=== PATIENT | female | born 1955 | race Caucasian/White ===

== ENCOUNTER 2017-11-03 17:02 | Inpatient (IN) | payer MEDICAID ==
[~2017-11-03] VITALS: Ht 162.6 cm; Wt 87.7 kg
[~2017-11-03 17:02] MED LIST: TRAM50TA2 PO
[2017-11-03] MEDS ORDERED: normal saline 1000ML IV soln IV ONE (17:30)
[2017-11-03] MEDS ORDERED: ipratropium/albuterol 3ml nebule NEB ONE (17:30)
[2017-11-03] MEDS ORDERED: acetaminophen 325mg tablet PO STA (17:30)
[2017-11-03] MEDS ORDERED: methylPREDNISolone sod succ 125mg/2ml vial IV ONE (17:30)
[2017-11-03 17:43] LABS: BASOPHILS % (AUTO) 0.1 % (0-1); EOSINOPHILS # (AUTO) 0.1 X10'3 (0-0.9); EOSINOPHILS % (AUTO) 0.5 % (0-6); HEMATOCRIT 44.2 % (35.0-45.0); HEMOGLOBIN 15.1 g/dl (12.0-16.0); LYMPHOCYTES # (AUTO) 1.3 X10'3 (1.1-4.8); LYMPHOCYTES % (AUTO) 6.7 % (21-51); MEAN CORPUSCULAR HEMOGLOBIN 29.9 PG (27.0-31.0); MEAN CORPUSCULAR HGB CONC 34.3 % (33.0-36.5); MEAN CORPUSCULAR VOLUME 87.4 FL (78-98); MEAN PLATELET VOLUME 10.3 FL (7.4-10.4); MONOCYTES # (AUTO) 0.5 X10'3 (0-0.9); MONOCYTES % (AUTO) 2.6 % (2-12); NEUTROPHILS # (AUTO) 17.4 X10'3 (1.8-7.7); NEUTROPHILS % (AUTO) 90.1 % (42-75); PLATELET COUNT 201 X10'3 (140-440); RED BLOOD COUNT 5.06 X10'6 (4.20-5.60); RED CELL DISTRIBUTION WIDTH 12.1 % (11.5-14.5); WHITE BLOOD COUNT 19.3 X10'3 (4.5-11.0)
[2017-11-03] MEDS ORDERED: GLYB5TAB7 PO (17:57)
[2017-11-03] MEDS ORDERED: ASPI-83 (17:57)
[2017-11-03] MEDS ORDERED: METF500T PO (17:58)
[2017-11-03] MEDS ORDERED: LISI-600 PO (17:59)
[2017-11-03 18:03] LABS: ALANINE AMINOTRANSFERASE 39 U/L (12-78); ALBUMIN 2.8 G/DL (3.4-5.0); ALBUMIN/GLOBULIN RATIO 0.5 (1.1-1.5); ALKALINE PHOSPHATASE 102 IU/L (46-116); ANION GAP 14 (8-16); ASPARTATE AMINO TRANSFERASE 21 U/L (10-37); BILIRUBIN,TOTAL 1.9 MG/DL (0.1-1.0); BLOOD UREA NITROGEN 17 MG/DL (7-18); CALCIUM 8.4 MG/DL (8.5-10.1); CHLORIDE 94 MMOL/L (99-107); CREATININE 1.21 MG/DL (0.40-0.90); GLUCOSE 313 MG/DL (70-104); POTASSIUM 4.1 MMOL/L (3.5-5.1); SODIUM 132 MMOL/L (135-145); TOTAL CARBON DIOXIDE 24.3 MMOL/L (24-32); TOTAL PROTEIN 8.4 G/DL (6.4-8.2); eGFR 45 ML/MIN
[2017-11-03 18:16] LABS: TOTAL CELLS COUNTED 100
[2017-11-03 18:17] LABS: PLATELET ESTIMATE NORMAL; ROULEAUX 1+
[2017-11-03] MEDS ORDERED: CefTRIAXone 2gm/D5W 50ml ADVTG 50 ML IV ONE (18:50)
[2017-11-03] MEDS ORDERED: azithromycin/NS 500mg/250ml 250 ML IV ONE (18:50)
[2017-11-03] MEDS: normal saline 1000ml 1,000 ML IV SCH (20:09)
[2017-11-03] MEDS ORDERED: acetaminophen 325mg tablet PO PRN ×2 (20:10)
[2017-11-03] MEDS ORDERED: magnesium hydroxide 30ml (MOM) UD suspension PO PRN (20:10)
[2017-11-03] MEDS ORDERED: ondansetron/PF 4mg/2ml inj IV PRN (20:10)
[2017-11-03] MEDS ORDERED: mag hydrox/Alum hydrox/simeth 30ml oral suspension PO PRN (20:10)
[2017-11-03] MEDS ORDERED: MESSAGE TO PHARMACY PO ONE (20:15)
[2017-11-03] MEDS ORDERED: dextrose 50%-water 50ml dispensing syringe IV PRN ×2 (20:15)
[2017-11-03] MEDS ORDERED: dextrose ORAL solution 15 GM/59 ML bottle PO PRN ×2 (20:15)
[2017-11-03] MEDS ORDERED: glucagon, human recombinant 1mg kit SUBCUT PRN (20:15)
[2017-11-03] MEDS ORDERED: Insulin Detemir pen SQ SCH (21:00)
[2017-11-03 22:05] VITALS: BP 152/86
[2017-11-03 23:30] VITALS: BP 140/75
[2017-11-04] MEDS: methylPREDNISolone sod succ 125mg/2ml vial IV SCH ×4 (02:07→20:54)
[2017-11-04] MEDS: normal saline 1000ml 1,000 ML IV SCH ×2 (02:07→14:25)
[2017-11-04 05:19] LABS: BASOPHILS % (AUTO) 0.1 % (0-1); EOSINOPHILS # (AUTO) 0.1 X10'3 (0-0.9); EOSINOPHILS % (AUTO) 0.8 % (0-6); HEMATOCRIT 37.8 % (35.0-45.0); HEMOGLOBIN 13.1 g/dl (12.0-16.0); LYMPHOCYTES # (AUTO) 1.1 X10'3 (1.1-4.8); LYMPHOCYTES % (AUTO) 8.1 % (21-51); MEAN CORPUSCULAR HEMOGLOBIN 30.1 PG (27.0-31.0); MEAN CORPUSCULAR HGB CONC 34.6 % (33.0-36.5); MEAN CORPUSCULAR VOLUME 87.2 FL (78-98); MEAN PLATELET VOLUME 10.5 FL (7.4-10.4); MONOCYTES # (AUTO) 0.3 X10'3 (0-0.9); MONOCYTES % (AUTO) 2.3 % (2-12); NEUTROPHILS # (AUTO) 12.4 X10'3 (1.8-7.7); NEUTROPHILS % (AUTO) 88.7 % (42-75); PLATELET COUNT 177 X10'3 (140-440); RED BLOOD COUNT 4.34 X10'6 (4.20-5.60)
[2017-11-04] MEDS: ipratropium/albuterol 3ml nebule NEB PRN ×3 (05:20→15:56)
[2017-11-04 05:41] LABS: ALBUMIN 2.1 G/DL (3.4-5.0); ANION GAP 9 (8-16); BLOOD UREA NITROGEN 15 MG/DL (7-18); BUN/CREATININE RATIO 17.4 (6.6-38.0); CALCIUM 7.9 MG/DL (8.5-10.1); CHLORIDE 106 MMOL/L (99-107); CREATININE 0.86 MG/DL (0.40-0.90); GLUCOSE 324 MG/DL (70-104); POTASSIUM 4.1 MMOL/L (3.5-5.1); SODIUM 139 MMOL/L (135-145); TOTAL CARBON DIOXIDE 24.4 MMOL/L (24-32); eGFR 67 ML/MIN
[2017-11-04] MEDS ORDERED: vancomycin/NS 1 GM ADD-VANTAGE 250 ML IV ONE (05:50)
[2017-11-04 07:23] VITALS: BP 129/82
[2017-11-04] MEDS: aspirin 325mg tablet PO SCH (07:47)
[2017-11-04] MEDS: lisinopril 20mg tablet PO SCH (07:47)
[2017-11-04] MEDS ORDERED: azithromycin/NS 500mg/250ml 250 ML IV SCH (08:00)
[2017-11-04] MEDS ORDERED: CefTRIAXone 2gm/D5W 50ml ADVTG 50 ML IV SCH (08:00)
[2017-11-04] MEDS: enoxaparin 40mg/0.4ml syringe SQ SCH (08:37)
[2017-11-04] MEDS: insulin Lispro (HumaLOG) vial - multi-dose SQ SCH ×3 (08:41→19:11)
[2017-11-04] MEDS ORDERED: azithromycin 250mg tablet PO SCH (09:28)
[2017-11-04 09:59] LABS: ALBUMIN 2.1 G/DL (3.4-5.0); ANION GAP 9 (8-16); BLOOD UREA NITROGEN 18 MG/DL (7-18); CALCIUM 7.9 MG/DL (8.5-10.1); CHLORIDE 105 MMOL/L (99-107); GLUCOSE 411 MG/DL (70-104); SODIUM 139 MMOL/L (135-145); TOTAL CARBON DIOXIDE 25.3 MMOL/L (24-32); eGFR 64 ML/MIN
[2017-11-04 11:20] VITALS: BP 143/69
[2017-11-04] MEDS ORDERED: insulin Lispro (HumaLOG) vial - multi-dose SQ ONE ×2 (14:45→16:40)
[2017-11-04] MEDS ORDERED: guaiFENesin/DM oral syrup 5 ML CUP PO PRN (16:50)
[2017-11-04] MEDS: ipratropium/albuterol 3ml nebule NEB SCH ×3 (16:50→23:42)
[2017-11-04] MEDS: levoFLOXACIN-Levaquin 750MG/D5 150 ML IV SCH (17:29)
[2017-11-04 20:00] VITALS: BP 151/84
[2017-11-04] MEDS: Insulin Detemir pen SQ SCH (21:01)
[2017-11-05] VITALS: BP 150/80
[2017-11-05] MEDS: methylPREDNISolone sod succ 125mg/2ml vial IV SCH ×3 (02:51→14:39)
[2017-11-05] MEDS: normal saline 1000ml 1,000 ML IV SCH ×2 (02:53→13:22)
[2017-11-05] MEDS: ipratropium/albuterol 3ml nebule NEB SCH ×6 (03:56→23:19)
[2017-11-05 05:45] LABS: BASOPHILS % (AUTO) 0 % (0-1); EOSINOPHILS % (AUTO) 0 % (0-6); HEMATOCRIT 36.9 % (35.0-45.0); HEMOGLOBIN 12.7 g/dl (12.0-16.0); LYMPHOCYTES # (AUTO) 0.9 X10'3 (1.1-4.8); LYMPHOCYTES % (AUTO) 6.2 % (21-51); MEAN CORPUSCULAR HEMOGLOBIN 30.2 PG (27.0-31.0); MEAN CORPUSCULAR HGB CONC 34.4 % (33.0-36.5); MEAN CORPUSCULAR VOLUME 87.7 FL (78-98); MEAN PLATELET VOLUME 10.5 FL (7.4-10.4); MONOCYTES # (AUTO) 0.4 X10'3 (0-0.9); MONOCYTES % (AUTO) 2.9 % (2-12); NEUTROPHILS # (AUTO) 12.8 X10'3 (1.8-7.7); NEUTROPHILS % (AUTO) 90.9 % (42-75); PLATELET COUNT 193 X10'3 (140-440); RED BLOOD COUNT 4.21 X10'6 (4.20-5.60); RED CELL DISTRIBUTION WIDTH 12.2 % (11.5-14.5); WHITE BLOOD COUNT 14.1 X10'3 (4.5-11.0)
[2017-11-05 05:59] LABS: ANION GAP 10 (8-16); BLOOD UREA NITROGEN 29 MG/DL (7-18); BUN/CREATININE RATIO 30.9 (6.6-38.0); CALCIUM 8.3 MG/DL (8.5-10.1); CHLORIDE 106 MMOL/L (99-107); CREATININE 0.94 MG/DL (0.40-0.90); GLUCOSE 328 MG/DL (70-104); POTASSIUM 3.8 MMOL/L (3.5-5.1); SODIUM 137 MMOL/L (135-145); TOTAL CARBON DIOXIDE 21.3 MMOL/L (24-32); eGFR 61 ML/MIN
[2017-11-05 07:00] LABS: LARGE PLATELETS FEW; PLATELET ESTIMATE NORMAL
[2017-11-05] MEDS: levoFLOXACIN-Levaquin 750MG/D5 150 ML IV SCH (07:03)
[2017-11-05] MEDS: pantoprazole 40mg Tablet.DR PO SCH (07:04)
[2017-11-05] MEDS: aspirin 325mg tablet PO SCH (07:04)
[2017-11-05] MEDS: lisinopril 20mg tablet PO SCH (07:04)
[2017-11-05] MEDS: enoxaparin 40mg/0.4ml syringe SQ SCH (07:09)
[2017-11-05 07:15] VITALS: BP 166/89
[2017-11-05] MEDS: insulin Lispro (HumaLOG) vial - multi-dose SQ SCH ×4 (08:29→22:14)
[2017-11-05] MEDS ORDERED: insulin glargine (Lantus) pen - multi-dose SQ ONE (10:05)
[2017-11-05] MEDS ORDERED: insulin Lispro (HumaLOG) vial - multi-dose SQ ONE (10:05)
[2017-11-05] MEDS: Insulin Detemir pen SQ SCH (10:08)
[2017-11-05 11:32] VITALS: BP 168/88
[2017-11-05 18:00] VITALS: BP 157/85
[2017-11-05] MEDS: Potassium Cl inj 10 MEQ in normal saline 1000ml 1,000 ML IV SCH (20:46)
[2017-11-06] VITALS: BP 166/95
[2017-11-06] MEDS: methylPREDNISolone sod succ 125mg/2ml vial IV SCH ×3 (00:11→15:18)
[2017-11-06] MEDS: ipratropium/albuterol 3ml nebule NEB SCH ×6 (03:21→23:25)
[2017-11-06 05:03] LABS: BASOPHILS % (AUTO) 0.1 % (0-1); EOSINOPHILS % (AUTO) 0 % (0-6); HEMATOCRIT 35.8 % (35.0-45.0); HEMOGLOBIN 12.2 g/dl (12.0-16.0); LYMPHOCYTES # (AUTO) 0.9 X10'3 (1.1-4.8); LYMPHOCYTES % (AUTO) 6.7 % (21-51); MEAN CORPUSCULAR HEMOGLOBIN 30.2 PG (27.0-31.0); MEAN CORPUSCULAR HGB CONC 34.2 % (33.0-36.5); MEAN CORPUSCULAR VOLUME 88.2 FL (78-98); MEAN PLATELET VOLUME 10.5 FL (7.4-10.4); MONOCYTES # (AUTO) 0.5 X10'3 (0-0.9); MONOCYTES % (AUTO) 4.2 % (2-12); NEUTROPHILS # (AUTO) 11.4 X10'3 (1.8-7.7); PLATELET COUNT 211 X10'3 (140-440); RED BLOOD COUNT 4.06 X10'6 (4.20-5.60); RED CELL DISTRIBUTION WIDTH 12.3 % (11.5-14.5); WHITE BLOOD COUNT 12.8 X10'3 (4.5-11.0)
[2017-11-06 05:23] LABS: ANION GAP 7 (8-16); BLOOD UREA NITROGEN 30 MG/DL (7-18); BUN/CREATININE RATIO 36.6 (6.6-38.0); CALCIUM 8.3 MG/DL (8.5-10.1); CHLORIDE 109 MMOL/L (99-107); CREATININE 0.82 MG/DL (0.40-0.90); GLUCOSE 317 MG/DL (70-104); SODIUM 137 MMOL/L (135-145); TOTAL CARBON DIOXIDE 20.7 MMOL/L (24-32); eGFR 71 ML/MIN
[2017-11-06 08:00] VITALS: BP 155/92
[2017-11-06] MEDS: pantoprazole 40mg Tablet.DR PO SCH (08:10)
[2017-11-06] MEDS: levoFLOXACIN-Levaquin 750MG/D5 150 ML IV SCH (08:10)
[2017-11-06] MEDS: lisinopril 20mg tablet PO SCH ×2 (08:10→21:15)
[2017-11-06] MEDS: enoxaparin 40mg/0.4ml syringe SQ SCH (08:11)
[2017-11-06] MEDS: aspirin 325mg tablet PO SCH (08:11)
[2017-11-06] MEDS: insulin Lispro (HumaLOG) vial - multi-dose SQ SCH ×3 (09:19→18:52)
[2017-11-06] MEDS: Potassium Cl inj 10 MEQ in normal saline 1000ml 1,000 ML IV SCH (09:34)
[2017-11-06 11:00] VITALS: BP 185/99
[2017-11-06] MEDS ORDERED: hydrALAZINE 20mg/ml inj. IV ONE (12:00)
[2017-11-06 20:00] VITALS: BP 153/72
[2017-11-06] MEDS: methylPREDNISolone sod succ/PF 40mg inj. IV SCH (21:15)
[2017-11-06] MEDS: Insulin Detemir pen SQ SCH (21:18)
[2017-11-07] VITALS: BP 176/90
[2017-11-07] MEDS: methylPREDNISolone sod succ/PF 40mg inj. IV SCH ×3 (02:12→13:55)
[2017-11-07] MEDS: ipratropium/albuterol 3ml nebule NEB SCH ×4 (03:09→14:37)
[2017-11-07 03:44] VITALS: BP 161/87
[2017-11-07 05:43] LABS: ALBUMIN 2.1 G/DL (3.4-5.0); ANION GAP 8 (8-16); BLOOD UREA NITROGEN 29 MG/DL (7-18); CALCIUM 8.2 MG/DL (8.5-10.1); CHLORIDE 107 MMOL/L (99-107); CREATININE 0.88 MG/DL (0.40-0.90); GLUCOSE 316 MG/DL (70-104); POTASSIUM 3.8 MMOL/L (3.5-5.1); SODIUM 137 MMOL/L (135-145); TOTAL CARBON DIOXIDE 22.5 MMOL/L (24-32); eGFR 66 ML/MIN
[2017-11-07] MEDS: enoxaparin 40mg/0.4ml syringe SQ SCH (07:14)
[2017-11-07] MEDS: pantoprazole 40mg Tablet.DR PO SCH (07:15)
[2017-11-07] MEDS: aspirin 325mg tablet PO SCH (07:15)
[2017-11-07] MEDS: lisinopril 20mg tablet PO SCH (07:15)
[2017-11-07] MEDS: levoFLOXACIN-Levaquin 750MG/D5 150 ML IV SCH (07:15)
[2017-11-07] MEDS ORDERED: LACTOBACILLUS RHAMNOSUS GG 15 billion unit sprinkle caps PO SCH (07:30)
[2017-11-07 08:00] VITALS: BP 163/79
[2017-11-07] MEDS: insulin Lispro (HumaLOG) vial - multi-dose SQ SCH ×2 (09:01→13:06)
[2017-11-07] MEDS ORDERED: INSU100V11 SQ (10:32)
[2017-11-07] MEDS ORDERED: LEVO750T21 PO (10:32)
[2017-11-07] MEDS ORDERED: PRED10TA23 PO (10:34)
[2017-11-07] MEDS ORDERED: OMEP20TA23 PO (10:34)
[2017-11-07] MEDS ORDERED: ALBU6.7H INH (10:34)
[2017-11-07] MEDS ORDERED: LANTUS SQ (10:44)
[2017-11-07] MEDS ORDERED: lisinopril 10 MG tablet PO ONE (11:10)
[2017-11-07 12:00] VITALS: BP 186/106
[2017-11-07] MEDS ORDERED: hydrALAZINE 20mg/ml inj. IV ONE (13:45)
== END 2017-11-07 15:45 | disposition home or self-care (01) | DRG 720 ==
LOC: ER 17:03 → ED HOLD 20:09 → SUR 3N 22:14
PROVIDERS: ADMIT Internal Medicine; ATTEND Internal Medicine
DX: A40.3 Sepsis due to Streptococcus pneumoniae (principal); J96.90 Respiratory failure, unspecified, unspecified whether with hypoxia or hypercapnia; N17.9 Acute kidney failure, unspecified; J18.1 Lobar pneumonia, unspecified organism; E86.0 Dehydration; J44.0 Chronic obstructive pulmonary disease with (acute) lower respiratory infection; E87.1 Hypo-osmolality and hyponatremia; I10 Essential (primary) hypertension; F17.210 Nicotine dependence, cigarettes, uncomplicated; N28.9 Disorder of kidney and ureter, unspecified; E11.65 Type 2 diabetes mellitus with hyperglycemia; J44.1 Chronic obstructive pulmonary disease with (acute) exacerbation; R07.89 Other chest pain; Z98.891 History of uterine scar from previous surgery; Z79.899 Other long term (current) drug therapy; Z79.01 Long term (current) use of anticoagulants; Z79.82 Long term (current) use of aspirin; Z79.4 Long term (current) use of insulin; Z79.84 Long term (current) use of oral hypoglycemic drugs
CPT/HCPCS: 36415; 71046; 80048; 80053; 82948; 83036; 83605; 85025; 87040; 87070; 87077; 87186; 87502; 87503; 93005; 94640; 94760; 96365; 96375; 99285; J0360; J0456; J0696; J1650; J1956; J2920; J2930; J3370; J3480; J7030

== ENCOUNTER 2018-03-11 18:27 | Inpatient (IN) | payer MEDICAID ==
[~2018-03-11] VITALS: Ht 162.6 cm; Wt 88.5 kg
[~2018-03-11 18:27] MED LIST changes: +ALBU6.7H INH; +ASPI-83; +INSU100V11 SQ; +LISI-600 PO; +METF500T PO; +OMEP20TA23 PO; -TRAM50TA2 PO
[2018-03-11] MEDS ORDERED: aspirin 81mg tab.chew PO ONE (18:40)
[2018-03-11 18:56] LABS: BASOPHILS # (AUTO) 0.1 X10'3 (0-0.2); BASOPHILS % (AUTO) 0.7 % (0-1); EOSINOPHILS # (AUTO) 0.2 X10'3 (0-0.9); EOSINOPHILS % (AUTO) 2.3 % (0-6); HEMATOCRIT 42.4 % (35.0-45.0); HEMOGLOBIN 14.8 g/dl (12.0-16.0); LYMPHOCYTES # (AUTO) 2.2 X10'3 (1.1-4.8); MEAN CORPUSCULAR HEMOGLOBIN 30.8 PG (27.0-31.0); MEAN CORPUSCULAR HGB CONC 34.9 % (33.0-36.5); MEAN CORPUSCULAR VOLUME 88.2 FL (78-98); MEAN PLATELET VOLUME 9.9 FL (7.4-10.4); MONOCYTES # (AUTO) 0.4 X10'3 (0-0.9); NEUTROPHILS # (AUTO) 4.7 X10'3 (1.8-7.7); PLATELET COUNT 207 X10'3 (140-440); RED BLOOD COUNT 4.81 X10'6 (4.20-5.60); RED CELL DISTRIBUTION WIDTH 11.9 % (11.5-14.5); WHITE BLOOD COUNT 7.4 X10'3 (4.5-11.0)
[2018-03-11 19:07] LABS: INR 0.9 INR; PARTIAL THROMBOPLASTIN TIME 25 SECONDS (22-32); PROTHROMBIN TIME 9.8 SECONDS (9.0-12.0)
[2018-03-11 19:10] LABS: ALANINE AMINOTRANSFERASE 58 U/L (12-78); ALBUMIN 3.5 G/DL (3.4-5.0); ALBUMIN/GLOBULIN RATIO 0.9 (1.1-1.5); ALKALINE PHOSPHATASE 109 IU/L (46-116); ANION GAP 9 (8-16); ASPARTATE AMINO TRANSFERASE 30 U/L (10-37); BILIRUBIN,TOTAL 0.6 MG/DL (0.1-1.0); BLOOD UREA NITROGEN 17 MG/DL (7-18); BUN/CREATININE RATIO 19.1 (6.6-38.0); CALCIUM 9.2 MG/DL (8.5-10.1); CHLORIDE 105 MMOL/L (99-107); CREATININE 0.89 MG/DL (0.40-0.90); GLUCOSE 191 MG/DL (70-104); POTASSIUM 4.2 MMOL/L (3.5-5.1); SODIUM 141 MMOL/L (135-145); TOTAL CARBON DIOXIDE 27.1 MMOL/L (24-32); TOTAL PROTEIN 7.4 G/DL (6.4-8.2); eGFR 65 ML/MIN
[2018-03-11] MEDS ORDERED: nitroGLYCERIN 0.4mg SUBLingual tab SL PRN (19:25)
[2018-03-11] MEDS ORDERED: heparin 10,000 units/1 ML INJ IV ONE (19:25)
[2018-03-11] MEDS ORDERED: heparin 10,000 units/1 ML INJ IV PRN ×2 (19:25→22:20)
[2018-03-11] MEDS ORDERED: INSU100I31 SUBCUT (20:29)
[2018-03-11] MEDS ORDERED: sodium chloride 0.45% 1,000 ML IV SCH (22:08)
[2018-03-11] MEDS ORDERED: mag hydrox/Alum hydrox/simeth 30ml oral suspension PO PRN (22:10)
[2018-03-11] MEDS ORDERED: ondansetron/PF 4mg/2ml inj IV PRN (22:10)
[2018-03-11] MEDS ORDERED: magnesium hydroxide 30ml (MOM) UD suspension PO PRN (22:10)
[2018-03-11] MEDS ORDERED: morphine 4 MG/ML inj SYRINge IV PRN (22:10)
[2018-03-11] MEDS ORDERED: acetaminophen 325mg tablet PO PRN (22:10)
[2018-03-11 22:32] LABS: HEMOGLOBIN A1C 8.3 % (4.5-6.2)
[2018-03-11 22:50] LABS: BASOPHILS % (AUTO) 0.5 % (0-1); EOSINOPHILS # (AUTO) 0.3 X10'3 (0-0.9); EOSINOPHILS % (AUTO) 2.9 % (0-6); HEMATOCRIT 41.5 % (35.0-45.0); HEMOGLOBIN 14.5 g/dl (12.0-16.0); LYMPHOCYTES % (AUTO) 32.7 % (21-51); MEAN CORPUSCULAR HEMOGLOBIN 31.2 PG (27.0-31.0); MEAN CORPUSCULAR HGB CONC 34.9 % (33.0-36.5); MEAN CORPUSCULAR VOLUME 89.2 FL (78-98); MEAN PLATELET VOLUME 9.4 FL (7.4-10.4); MONOCYTES # (AUTO) 0.5 X10'3 (0-0.9); NEUTROPHILS # (AUTO) 5.4 X10'3 (1.8-7.7); NEUTROPHILS % (AUTO) 58.9 % (42-75); PLATELET COUNT 266 X10'3 (140-440); RED BLOOD COUNT 4.65 X10'6 (4.20-5.60); RED CELL DISTRIBUTION WIDTH 12.5 % (11.5-14.5); WHITE BLOOD COUNT 9.1 X10'3 (4.5-11.0)
[2018-03-11 22:59] LABS: PROTHROMBIN TIME 10.3 SECONDS (9.0-12.0)
[2018-03-11 23:00] VITALS: BP 161/70
[2018-03-11] MEDS: metoprolol tartrate 12.5mg (1/2 tablet) PO SCH (23:33)
[2018-03-11 23:36] LABS: PARTIAL THROMBOPLASTIN TIME 84 SECONDS (22-32)
[2018-03-12] VITALS (13 sets, daily range): BP systolic 122–155; BP diastolic 51–94
[2018-03-12] MEDS: lisinopril 2.5mg tablet PO SCH ×2 (00:58→07:57)
[2018-03-12] MEDS ORDERED: dextrose ORAL solution 15 GM/59 ML bottle PO PRN ×2 (01:35)
[2018-03-12] MEDS ORDERED: MESSAGE TO PHARMACY PO ONE (01:35)
[2018-03-12] MEDS ORDERED: glucagon, human recombinant 1mg kit SUBCUT PRN (01:35)
[2018-03-12] MEDS ORDERED: dextrose 50%-water 50ml dispensing syringe IV PRN ×2 (01:35)
[2018-03-12 07:08] LABS: BASOPHILS % (AUTO) 0.5 % (0-1); EOSINOPHILS # (AUTO) 0.3 X10'3 (0-0.9); HEMATOCRIT 41.8 % (35.0-45.0); HEMOGLOBIN 14.3 g/dl (12.0-16.0); LYMPHOCYTES # (AUTO) 2.3 X10'3 (1.1-4.8); LYMPHOCYTES % (AUTO) 36.4 % (21-51); MEAN CORPUSCULAR HEMOGLOBIN 30.8 PG (27.0-31.0); MEAN CORPUSCULAR HGB CONC 34.3 % (33.0-36.5); MEAN CORPUSCULAR VOLUME 89.8 FL (78-98); MEAN PLATELET VOLUME 10.1 FL (7.4-10.4); MONOCYTES # (AUTO) 0.4 X10'3 (0-0.9); MONOCYTES % (AUTO) 5.7 % (2-12); NEUTROPHILS # (AUTO) 3.4 X10'3 (1.8-7.7); NEUTROPHILS % (AUTO) 53.4 % (42-75); PLATELET COUNT 165 X10'3 (140-440); RED BLOOD COUNT 4.65 X10'6 (4.20-5.60); RED CELL DISTRIBUTION WIDTH 12.3 % (11.5-14.5); WHITE BLOOD COUNT 6.4 X10'3 (4.5-11.0)
[2018-03-12 07:24] LABS: ALANINE AMINOTRANSFERASE 55 U/L (12-78); ALBUMIN 3.2 G/DL (3.4-5.0); ALBUMIN/GLOBULIN RATIO 0.9 (1.1-1.5); ALKALINE PHOSPHATASE 84 IU/L (46-116); ANION GAP 6 (8-16); ASPARTATE AMINO TRANSFERASE 37 U/L (10-37); BILIRUBIN,TOTAL 0.9 MG/DL (0.1-1.0); BLOOD UREA NITROGEN 15 MG/DL (7-18); CALCIUM 8.7 MG/DL (8.5-10.1); CHLORIDE 105 MMOL/L (99-107); CREATININE 0.75 MG/DL (0.40-0.90); GLUCOSE 165 MG/DL (70-104); POTASSIUM 4.2 MMOL/L (3.5-5.1); SODIUM 138 MMOL/L (135-145); TOTAL CARBON DIOXIDE 27.2 MMOL/L (24-32); TOTAL PROTEIN 6.8 G/DL (6.4-8.2); eGFR 79 ML/MIN
[2018-03-12 07:28] LABS: MAGNESIUM 1.6 MG/DL (1.5-2.4); PHOSPHORUS 4.1 MG/DL (2.3-4.5)
[2018-03-12] MEDS: metoprolol tartrate 12.5mg (1/2 tablet) PO SCH ×2 (07:57→20:54)
[2018-03-12] MEDS: aspirin 81mg tablet.DR PO SCH (07:57)
[2018-03-12] MEDS ORDERED: nitroGLYCERIN 0.4mg SUBLingual tab SL PRN (09:05)
[2018-03-12] MEDS ORDERED: CAFFEINE CITRATE 60 MG/3 ML injection vial IV PRN (09:05)
[2018-03-12] MEDS ORDERED: regadenoson 0.4mg/5ml syringe IV ONE ×2 (09:05→11:24)
[2018-03-12] MEDS ORDERED: metoprolol tartrate 1mg/ml inj IV PRN (09:05)
[2018-03-12] MEDS ORDERED: CAFFEINE CITRATE 60 MG/3 ML injection vial IV ONE (11:24)
[2018-03-12 11:37] LABS: CHOL/HDL RATIO 2.9 (0.00-4.99); CHOLESTEROL 195 MG/DL (0-200); HDL CHOLESTEROL 68 MG/DL (35-60); LDL CHOLESTEROL 115 MG/DL (50-100); TRIGLYCERIDES 76 MG/DL (20-135)
[2018-03-12] MEDS ORDERED: insulin glargine (Lantus) pen - multi-dose SQ SCH (21:00)
[2018-03-12] MEDS: insulin Lispro (HumaLOG) vial - multi-dose SQ SCH (22:07)
[2018-03-13 04:00] VITALS: BP 147/71
[2018-03-13 05:31] LABS: BASOPHILS # (AUTO) 0.1 X10'3 (0-0.2); BASOPHILS % (AUTO) 0.8 % (0-1); EOSINOPHILS # (AUTO) 0.2 X10'3 (0-0.9); HEMOGLOBIN 15.8 g/dl (12.0-16.0); LYMPHOCYTES # (AUTO) 1.6 X10'3 (1.1-4.8); LYMPHOCYTES % (AUTO) 21.8 % (21-51); MEAN CORPUSCULAR HEMOGLOBIN 30.5 PG (27.0-31.0); MEAN CORPUSCULAR HGB CONC 34.2 % (33.0-36.5); MEAN PLATELET VOLUME 10.5 FL (7.4-10.4); MONOCYTES # (AUTO) 0.5 X10'3 (0-0.9); MONOCYTES % (AUTO) 6.6 % (2-12); NEUTROPHILS % (AUTO) 67.8 % (42-75); PLATELET COUNT 183 X10'3 (140-440); RED BLOOD COUNT 5.17 X10'6 (4.20-5.60); WHITE BLOOD COUNT 7.4 X10'3 (4.5-11.0)
[2018-03-13 06:07] LABS: ALANINE AMINOTRANSFERASE 59 U/L (12-78); ALBUMIN 3.4 G/DL (3.4-5.0); ALBUMIN/GLOBULIN RATIO 0.9 (1.1-1.5); ALKALINE PHOSPHATASE 98 IU/L (46-116); ANION GAP 9 (8-16); ASPARTATE AMINO TRANSFERASE 32 U/L (10-37); BILIRUBIN,TOTAL 0.9 MG/DL (0.1-1.0); BLOOD UREA NITROGEN 18 MG/DL (7-18); BUN/CREATININE RATIO 21.2 (6.6-38.0); CALCIUM 9.2 MG/DL (8.5-10.1); CHLORIDE 103 MMOL/L (99-107); CREATININE 0.85 MG/DL (0.40-0.90); GLUCOSE 150 MG/DL (70-104); MAGNESIUM 1.9 MG/DL (1.5-2.4); POTASSIUM 4.3 MMOL/L (3.5-5.1); SODIUM 138 MMOL/L (135-145); TOTAL CARBON DIOXIDE 25.9 MMOL/L (24-32); TOTAL PROTEIN 7.3 G/DL (6.4-8.2); eGFR 68 ML/MIN
[2018-03-13] MEDS: metoprolol tartrate 12.5mg (1/2 tablet) PO SCH (07:49)
[2018-03-13] MEDS: aspirin 81mg tablet.DR PO SCH (07:50)
[2018-03-13] MEDS: lisinopril 2.5mg tablet PO SCH (07:50)
[2018-03-13] MEDS: insulin Lispro (HumaLOG) vial - multi-dose SQ SCH (07:58)
[2018-03-13] MEDS ORDERED: LISI2.5T2 PO (08:00)
[2018-03-13] MEDS ORDERED: METO25TA6 PO (08:00)
[2018-03-13] MEDS ORDERED: ATOR10TA PO (08:00)
[2018-03-13 08:19] LABS: LARGE PLATELETS FEW; PLATELET ESTIMATE NORMAL
== END 2018-03-13 11:41 | disposition home or self-care (01) | DRG 190 ==
LOC: ER 18:27 → ED HOLD 22:08 → PCU 3S 23:00
PROVIDERS: ADMIT Emergency Medicine; ATTEND Internal Medicine
PROC: 4A02XM4 Measurement of Cardiac Total Activity, External Approach (ICD-10-PCS; principal; 2018-03-12)
DX: I21.4 Non-ST elevation (NSTEMI) myocardial infarction (principal); E11.65 Type 2 diabetes mellitus with hyperglycemia; I10 Essential (primary) hypertension; F17.210 Nicotine dependence, cigarettes, uncomplicated; Z79.899 Other long term (current) drug therapy; Z79.4 Long term (current) use of insulin; Z79.82 Long term (current) use of aspirin; Z87.01 Personal history of pneumonia (recurrent)
CPT/HCPCS: 36415; 71045; 78452; 80053; 80061; 82948; 83036; 83735; 84100; 84484; 85025; 85610; 85730; 87070; 93005; 93017; 93306; 96365; 99291; A9500; J1644; J1815

== ENCOUNTER 2022-04-01 08:55 | Emergency (ER) | payer MEDICAID ==
[~2022-04-01] VITALS: Ht 162.6 cm; Wt 82.1 kg
[~2022-04-01 08:55] MED LIST changes: -ALBU6.7H INH; +ALBU6.7H9 INH; +ATOR10TA PO; +INSU100I31 SUBCUT; -LISI-600 PO; +LISI2.5T14 PO; +LOP25T PO; -OMEP20TA23 PO
[2022-04-01 09:02] VITALS: BP 193/78
[2022-04-01 09:36] LABS: BASOPHILS # (AUTO) 0.1 X10'3 (0-0.2); BASOPHILS % (AUTO) 0.9 % (0-1); EOSINOPHILS # (AUTO) 0.1 X10'3 (0-0.9); EOSINOPHILS % (AUTO) 2.3 % (0-6); HEMATOCRIT 43.5 % (35.0-45.0); LYMPHOCYTES # (AUTO) 1.6 X10'3 (1.1-4.8); LYMPHOCYTES % (AUTO) 24.4 % (21-51); MEAN CORPUSCULAR HEMOGLOBIN 30.2 PG (27.0-31.0); MEAN CORPUSCULAR HGB CONC 34.5 g/dL (33.0-36.5); MEAN CORPUSCULAR VOLUME 87.7 FL (78-98); MEAN PLATELET VOLUME 10.2 FL (7.4-10.4); MONOCYTES # (AUTO) 0.4 X10'3 (0-0.9); MONOCYTES % (AUTO) 6.4 % (2-12); NEUTROPHILS # (AUTO) 4.2 X10'3 (1.8-7.7); PLATELET COUNT 211 X10'3 (140-440); RED BLOOD COUNT 4.96 X10'6 (4.20-5.60); RED CELL DISTRIBUTION WIDTH 12.8 % (11.5-14.5); WHITE BLOOD COUNT 6.4 X10'3 (4.5-11.0)
[2022-04-01 09:48] LABS: ALANINE AMINOTRANSFERASE 42 U/L (12-78); ALBUMIN 3.1 G/DL (3.4-5.0); ALBUMIN/GLOBULIN RATIO 0.7 (1.1-1.5); ALKALINE PHOSPHATASE 144 IU/L (46-116); ANION GAP 8 (8-16); ASPARTATE AMINO TRANSFERASE 23 U/L (10-37); BILIRUBIN,TOTAL 0.7 MG/DL (0.1-1.0); BLOOD UREA NITROGEN 21 MG/DL (7-18); CALCIUM 8.6 MG/DL (8.5-10.1); CHLORIDE 103 MMOL/L (99-107); CREATININE 0.84 MG/DL (0.40-0.90); GLUCOSE 375 MG/DL (70-104); LIPASE 114 U/L (73-393); SODIUM 137 MMOL/L (135-145); TOTAL PROTEIN 7.3 G/DL (6.4-8.2); eGFR 68 ML/MIN
== END 2022-04-01 18:40 | disposition left against medical advice (07) ==
LOC: ER 08:56
DX: R10.31 Right lower quadrant pain (principal); Z53.21 Procedure and treatment not carried out due to patient leaving prior to being seen by health care provider
CPT/HCPCS: 36415; 80053; 83690; 85025

== ENCOUNTER 2022-10-02 11:43 | Emergency (ER) | payer MEDICAID ==
[~2022-10-02] VITALS: Ht 162.6 cm; Wt 77.3 kg
[~2022-10-02 11:43] MED LIST changes: +ALBU6.7H14 INH; -ALBU6.7H9 INH
[2022-10-02] MEDS ORDERED: ALBU6.7H14 INH (17:06)
[2022-10-02] MEDS ORDERED: AMOX-117 PO (17:06)
[2022-10-02] MEDS ORDERED: PRED20TA PO (17:06)
[2022-10-02] MEDS ORDERED: ipratropium/albuterol 3ml nebule NEB ONE (17:40)
[2022-10-02 17:42] VITALS: BP 158/82
== END 2022-10-02 17:56 | disposition home or self-care (01) ==
LOC: ER 11:44
DX: J20.9 Acute bronchitis, unspecified (principal); I10 Essential (primary) hypertension; E11.9 Type 2 diabetes mellitus without complications; F17.200 Nicotine dependence, unspecified, uncomplicated
CPT/HCPCS: 71046; 94640; 94760; 99283